=== PATIENT | female | born 1990 | race Hispanic/Latino ===

== ENCOUNTER 2023-04-10 18:37 | Emergency (ER) | payer SELFPAY ==
[2023-04-10 18:45] VITALS: BP 128/83
[2023-04-10 19:29] LABS: % Basophils 0.3 % (0-2); % Eosinophils 1.7 % (0-6); % Immature Granulocytes 0.3 % (0-0.5); % Monocytes 5.1 % (1.7-9.3); % Neutrophils 68.6 % (42.2-75.2); Absolute Eosinophils 0.2 10^3/uL (0-0.7); Absolute Lymphocytes 2.8 10^3/uL (1.2-3.4); Absolute Monocytes 0.6 10^3/uL (0.1-0.6); Absolute Neutrophils 7.9 10^3/uL (1.4-6.5); Hemoglobin 14.4 g/dL (12.0-16.0); Mean Corp Hgb Conc. 34.3 g/dL (33.0-37.0); Mean Corpuscular Hgb 29.8 pg (27.0-31.0); Mean Platelet Volume 9.7 fL (7.4-10.4); Nucleated Red Blood Cells % 0 %; Platelet Count 293 10^3/uL (130-400); Red Blood Cell Count 4.83 10^6/uL (4.20-5.40); Red Cell Dist. Width 12.1 % (11.5-14.5); White Blood Cell Count 11.4 10^3/uL (4.8-10.8)
[2023-04-10 19:39] LABS: HCG, Serum Qualitative Screen Negative
[2023-04-10 19:44] LABS: ALT (SGPT) 29 U/L (0-35); AST (SGOT) 32 U/L (14-36); Albumin 4.5 g/dl (3.5-5.0); Alkaline Phosphatase 86 U/L (38-126); Blood Urea Nitrogen 13 mg/dl (7-17); Calcium 9.7 mg/dl (8.4-10.2); Carbon Dioxide 28 mmol/L (22-30); Chloride 97 mmol/L (98-107); Glucose 89 mg/dl (70-99); Sodium 136 mmol/L (135-145); Total Bilirubin 0.8 mg/dl (0.2-1.3); Total Protein 7.5 g/dl (6.3-8.2); eGFR > 60.00
--- NOTE | 2023-04-10 22:13 | ED.GENMED ---
History of Present Illness
<WILY Bill - Last Filed: 04/11/23 00:12>
General
Chief Complaint: Headache
Source: patient and freelance interpreter/translator (Cousin)
Exam Limitations: none
Time Seen by Provider: 04/10/23 21:02
Travel History
Have you had any contact with someone who has COVID-19?: No
Do you have any symptoms of coronavirus? Fever > 100 degrees, chills, cough, shortness of breath, sore throat, loss of taste or smell, muscle aches, or headache?: No
History of Present Illness
History of Present Illness:
This is a 32 year old female that comes in with c/o left sided headache. States that she went to work today with a pounding headache. States that she passed out. States that with her right eye she can only see half of providers face. States that she
has had chest pain that comes and goes, nausea, and vomited once. States that she is also dizzy with the headache. Denies any fever, chills, abd pain, diarrhea, urinary burning.
Past History
<WILY Bill - Last Filed: 04/11/23 00:12>
Past History
ED Past Medical History: None; Negative Asthma, HTN, Hypercholesterolemia or NIDDM
ED Past Surgical History: Cholecystectomy
Social History
Tobacco: Non-smoker
Alcohol: Occasional
Personal: Single
Living: with family
Employment: Employed
Review of Systems
<WILY Bill - Last Filed: 04/11/23 00:12>
Review of Systems
All Other Systems: ROS reviewed and negative except as documented in HPI and ROS
Constitutional: Reports no symptoms; Denies fever or chills
EENT: Reports no symptoms
Respiratory: Denies cough or trouble breathing
Cardiac: Reports chest pain (Come and goes)
ABD/GI: Reports nausea and vomiting; Denies abdominal pain or diarrhea
: Reports no symptoms; Denies dysuria, frequency or urgency
Musculoskeletal: Reports no symptoms
Skin: Reports no symptoms
Neurological: Reports dizzy and headache (Left sided headache)
Psychiatric: Reports no symptoms
Phy Exam
<WILY Bill - Last Filed: 04/11/23 00:12>
General Physical Exam
General Presentation: mild distress
General age: appears stated age
General Skin: warm and dry
General Habitus: normal
General Mental: alert
General Hydration: appears well hydrated
ENT Exam
ENT Exam: TM's normal, pharynx normal and neck supple
Eye Exam
Eye Exam: PERRL and EOMI
Cardiovascular Exam
Cardiovascular Exam: regular rate/rhythm, no edema, no murmur and normal peripheral pulses
Pulmonary Exam
Pulmonary Exam: lungs clear, no respiratory distress, no rales, chest non tender, no crackles, no rhonchi, no wheezing and no cough
Gastrointestinal Exam
Gastrointestinal Exam: normal bowel sounds, non tender, soft, no organomegaly, no pulsatile mass and non distended
NIH Stroke Score
Level of Consciousness: 0 - Alert
LOC questions: 0-Answers both correctly
LOC Commands: 0-Performs both correctly
Best Gaze: 0-Normal
Visual Mcmahon: 0=Normal, no visual loss
Facial palsy: 0=Normal, symmetrical
Motor - Right Arm: 0=No drift 10 seconds
Motor - Left Arm: 0=No drift 10 seconds
Motor - Right Le-No drift 5 seconds
Motor - Left Le-No drift 5 seconds
Limb Ataxia: 0-Absent
Sensation: 0-Normal
Best Language: 0-No aphasia
Dysarthria: 0-Normal
Extinction and Inattention: 0-No abnormality
Total Score:: 0
Musculoskeletal Exam
Musculoskeletal Exam: full ROM, no edema and other (Hand grasp and push pulls equal)
Skin Exam
Skin Exam: normal color, warm/dry, no rash and no petechia
Psychiatric Exam
Psychiatric Exam: normal mood/affect
<Damian Hollins DO - Last Filed: 04/10/23 22:53>
NIH Stroke Score
Total Score:: 0
Course
<WILY Bill - Last Filed: 04/11/23 00:12>
Orders/Labs/Results
Orders:
Orders
04/10/23 18:50
ECG [Electrocardiogram (*1)] Urgent
Reason for Study: Chest Pain
CT Head W/o Iv Contrast Urgent
Comment:
Reason For Exam: headache
Test Result ONCE
04/10/23 18:51
EKG- Treatment ONCE
04/10/23 19:07
Complete Blood Count/With Diff Urgent
Comprehensive Metabolic Panel Urgent
HCG, Serum Qualitative Screen Urgent
04/10/23 22:06
0.9% Sodium Chloride 1000 ml [Nss] 1,000 ml IV BOLUS
Acetaminophen [Tylenol] 1,000 mg PO NOW STA
Dexamethasone Sod Phosphate [Decadron] 20 mg IV NOW STA
Diphenhydramine [Benadryl] 25 mg IV NOW STA
Ketorolac [Toradol] 30 mg IV NOW STA
Prochlorperazine [Compazine] 5 mg IV NOW STA
04/10/23 22:47
Troponin I Urgent
04/10/23 22:54
Morphine Sulfate 2 mg IV NOW STA
Abnormal Lab Results
04/10/23
19:07
WBC 11.4 H 10^3/uL
(4.8-10.8)
Absolute Neuts (auto) 7.9 H 10^3/uL
(1.4-6.5)
Chloride 97 L mmol/L
(98-107)
04/10/23 19:07
04/10/23 19:07
WBC slightly elevated. HCG negative.
Vital Signs
Initial and Last Documented VS:
Initial Vital Signs
Pulse Resp BP Pulse Ox
90 20 128/83 97
04/10/23 18:45 04/10/23 18:45 04/10/23 18:45 04/10/23 18:45
Last Documented Vital Signs
Temp Pulse Resp BP Pulse Ox
97.4 F 60 20 101/87 100
04/10/23 22:50 04/10/23 22:44 04/10/23 18:45 04/10/23 22:44 04/10/23 22:44
<Damian Hollins, DO - Last Filed: 04/10/23 22:53>
Orders/Labs/Results
Orders:
Orders
04/10/23 18:50
ECG [Electrocardiogram (*1)] Urgent
Reason for Study: Chest Pain
CT Head W/o Iv Contrast Urgent
Comment:
Reason For Exam: headache
Test Result ONCE
04/10/23 18:51
EKG- Treatment ONCE
04/10/23 19:07
Complete Blood Count/With Diff Urgent
Comprehensive Metabolic Panel Urgent
HCG, Serum Qualitative Screen Urgent
04/10/23 22:06
0.9% Sodium Chloride 1000 ml [Nss] 1,000 ml IV BOLUS
Acetaminophen [Tylenol] 1,000 mg PO NOW STA
Dexamethasone Sod Phosphate [Decadron] 20 mg IV NOW STA
Diphenhydramine [Benadryl] 25 mg IV NOW STA
Ketorolac [Toradol] 30 mg IV NOW STA
Prochlorperazine [Compazine] 5 mg IV NOW STA
04/10/23 22:47
Troponin I Urgent
04/10/23 22:54
Morphine Sulfate 2 mg IV NOW STA
Abnormal Lab Results
04/10/23
19:07
WBC 11.4 H 10^3/uL
(4.8-10.8)
Absolute Neuts (auto) 7.9 H 10^3/uL
(1.4-6.5)
Chloride 97 L mmol/L
(98-107)
04/10/23 19:07
04/10/23 19:07
Vital Signs
Initial and Last Documented VS:
Initial Vital Signs
Pulse Resp BP Pulse Ox
90 20 128/83 97
04/10/23 18:45 04/10/23 18:45 04/10/23 18:45 04/10/23 18:45
Last Documented Vital Signs
Temp Pulse Resp BP Pulse Ox
97.4 F 60 20 101/87 100
04/10/23 22:50 04/10/23 22:44 04/10/23 18:45 04/10/23 22:44 04/10/23 22:44
<WILY Bill - Last Filed: 04/11/23 00:12>
MDM/Problems Addressed
Differential Diagnosis Includes:
Complicated Migraine,
MDM/Problems Addressed:
This is a 32 year old female that comes in with c/o left sided headache pain and some vision loss in the right eye. States that she went to work this morning and she passed out due to her headache pain. States that she still has pain on the left
side and she can only see half of my face.
Will get labs, Medicate for pain and CT scan.
Back into see patient. Patient states that she is feeling better and that her vision is normal. Explained that this is most likely a complicated Migraine. Will have patient increase her water intake to 8-8oz glasses daily. Tylenol 1000mg every 6
hours for pain and Ibuprofen 600mg every 6 hours with food for pain. Follow up in the clinic as needed. Return with any concerns.
Chronic conditions affecting care:
NA
Acute Exacerbation and/or Progression of Chronic Illness:
NA
<WILY Bill - Last Filed: 04/11/23 00:12>
*Radiology
Radiology exam reviewed: radiology read reviewed (CT head- NO evidence of acute intracranial abnormality. )
*Pulse Oximetry
Patient hypoxic: no
*EKG
Interpreted by ED Provider?: Yes
Heart Rate: 65
Rate: normal
Rhythm: sinus
[place]: normal axis
Interval: normal interval
QRS Pattern: normal QRS
Ischemia: T-wave inversion (III, aVR, aVF, V1, V3, V4, )
*Shovel Oiler Interpretation
Rate: Shovel Oiler- N/A
*Critical Care Note
Total Time (30-74mins, 75-104mins- exclusive of procedures): Not Applicable
ED Attending Note
<WILY Bill - Last Filed: 04/11/23 00:12>
-
Portions of this chart may have been created with voice recognition software.� Occasional wrong word or��sound alike� substitutions may have occurred due to the inherent limitations of voice recognition software.
<Damian Hollins DO - Last Filed: 04/10/23 22:53>
ED Attending Note
Patient seen and examined by attending physician: Yes
I performed the substantive portion of visit, reviewed & personally made and approve the management plan that is documented in note by myself or DAE.: Yes
ED Attending Note:
Seen with CHIPPER examined independently acute onset of headache unilateral visual changes right arm numbness
Does not currently get headaches, just finished her menstrual cycle, she has had heavy menstrual bleeding previously when she was in [place] was told that she had a hormonal abnormality,
CT of the head noted
Suspect complicated migraine, versus other will see if she does after migraine cocktail,
My evaluation she is awake alert no pain with flexion of the neck does have mild photophobia, moving all extremities,
Discharge Plan
Departure
Patient Disposition: Home (Routine Discharge)
Date of Disposition: 04/11/23
Time of Disposition: 00:09
Patient with high blood pressure during this ER visit?: No
Condition: Good
Covid-19: Not Applicable
Discharge Problem:
Complicated migraine
Instructions: Migraines (DC)
Referrals:
Shahzad Hu MD [Family Provider] - Call in 1-3 days for appt
Activity Restrictions/Additional Instructions:
As discussed, your blood work shows that your white blood cell count is very slightly elevated. Your CT scan is normal. This is most likely a complicated Migraine. Please increase your water intake to 8-8oz glasses daily. You may take Tylenol 1000mg
every 6 hours for pain and alternate with Ibuprofen 600mg every 6 hours with food for pain. Follow up in the clinic as needed. IF YOU HAVE ANY OTHER CONCERNS PLEASE RETURN TO THE EMERGENCY ROOM
Interventions
Interventions:
*Risk Screen - Suicide Last Done: 04/10/23 18:45
*General Assessment Last Done: 04/10/23 18:45
*Neglect/Abuse Screening Last Done: 04/10/23 18:45
ED- Neurological Assessment Last Done: 04/10/23 23:04
[2023-04-10] MEDS: NSS 1000 IV (22:32)
[2023-04-10] MEDS: DECADRON 20 MG IV (22:35)
[2023-04-10] MEDS: COMPAZINE 5 MG IV (22:36)
[2023-04-10] MEDS: BENADRYL 25 MG IV (22:36)
[2023-04-10] MEDS: TORADOL 30 MG IV (22:37)
[2023-04-10] MEDS: TYLENOL 1000 MG PO (22:38)
[2023-04-10 22:44] VITALS: BP 101/87
[2023-04-10 23:19] LABS: Troponin I < 0.012 ng/ml
[2023-04-11 00:27] VITALS: BP 107/78
== END 2023-04-11 00:30 | disposition home or self-care (01) ==
LOC: EMR 18:37
PROVIDERS: Clinical Nurse Specialist Family Health; Emergency Medicine; EMERGENCY PHYSICIAN Emergency Medicine; FAMILY PHYSICIAN Pediatrics
DX: G43.109 Migraine with aura, not intractable, without status migrainosus (principal)
CPT/HCPCS: 99285; 96374; 96375 ×3; 96361; 70450; 80053; 84484; 84703; 85025; 93005

== ENCOUNTER 2023-05-07 18:53 | Emergency (ER) | payer SELFPAY ==
[2023-05-07 19:10] VITALS: BP 110/79
[2023-05-07 19:29] LABS: % Basophils 0.3 % (0-2); % Eosinophils 3.6 % (0-6); % Immature Granulocytes 0.3 % (0-0.5); % Monocytes 6.2 % (1.7-9.3); % Neutrophils 56.6 % (42.2-75.2); Absolute Eosinophils 0.3 10^3/uL (0-0.7); Absolute Monocytes 0.6 10^3/uL (0.1-0.6); Absolute Neutrophils 5.1 10^3/uL (1.4-6.5); Hematocrit 37.8 % (37.0-47.0); Hemoglobin 13.2 g/dL (12.0-16.0); Mean Corp Hgb Conc. 34.9 g/dL (33.0-37.0); Mean Corpuscular Volume 85.9 fL (81.0-99.0); Mean Platelet Volume 9.6 fL (7.4-10.4); Nucleated Red Blood Cells % 0 %; Platelet Count 319 10^3/uL (130-400); Red Cell Dist. Width 12.6 % (11.5-14.5); White Blood Cell Count 9.1 10^3/uL (4.8-10.8)
--- NOTE | 2023-05-07 20:39 | ED.GENMED ---
History of Present Illness
General
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
Source: patient and family
Exam Limitations: other (Language barrier)
Time Seen by Provider: 05/07/23 20:26
Travel History
Have you had any contact with someone who has COVID-19?: No
Do you have any symptoms of coronavirus? Fever > 100 degrees, chills, cough, shortness of breath, sore throat, loss of taste or smell, muscle aches, or headache?: No
History of Present Illness
History of Present Illness:
This is a 32 year old female that come in with c/o bleeding. Friend states that the patient has had vaginal bleeding since Apr 03. States that before this she had bleeding on and off but this has know been every day. States that she went to the
Clinic yesterday and she was told to come to the ER. States that she did get an appointment on May 21 with the RESIDENTIAL YOUTH COUNSELOR in the clinic. States that she has lower abd pain and is nauseated. States that yesterday she was dizzy. Denies any fever,
chills, chest pain, SOB, vomiting, diarrhea, headache, urinary burning.
Past History
Past History
ED Past Medical History: None; Negative Asthma, HTN, Hypercholesterolemia or NIDDM
ED Past Surgical History: Cholecystectomy and Gynecological (Ovarian cyst)
Social History
Tobacco: Non-smoker
Alcohol: Occasional
Personal: Single
Living: with family
Employment: Employed
Review of Systems
Review of Systems
All Other Systems: ROS reviewed and negative except as documented in HPI and ROS
Constitutional: Reports no symptoms; Denies fever or chills
EENT: Reports no symptoms
Respiratory: Reports no symptoms; Denies cough or trouble breathing
Cardiac: Reports no symptoms; Denies chest pain
ABD/GI: Reports abdominal pain and nausea; Denies vomiting or diarrhea
: Reports no symptoms; Denies dysuria, frequency or urgency
Musculoskeletal: Reports no symptoms
Skin: Reports no symptoms
Neurological: Reports dizzy (Yesterday); Denies headache
Psychiatric: Reports no symptoms
Phy Exam
General Physical Exam
General Presentation: no apparent distress
General age: appears stated age
General Skin: warm and dry
General Habitus: normal
General Mental: alert
General Hydration: appears well hydrated
ENT Exam
ENT Exam: TM's normal, pharynx normal and neck supple
Eye Exam
Eye Exam: EOMI
Cardiovascular Exam
Cardiovascular Exam: regular rate/rhythm, no edema, no murmur and normal peripheral pulses
Pulmonary Exam
Pulmonary Exam: lungs clear, no respiratory distress, no rales, chest non tender, no crackles, no rhonchi, no wheezing and no cough
Gastrointestinal Exam
Gastrointestinal Exam: normal bowel sounds, soft, no organomegaly, no pulsatile mass, non distended and tender (Lower abd tenderness with palpation)
Musculoskeletal Exam
Musculoskeletal Exam: full ROM and no edema
Skin Exam
Skin Exam: normal color, warm/dry, no rash and no petechia
Psychiatric Exam
Psychiatric Exam: normal mood/affect
Course
Orders/Labs/Results
Orders:
Orders
05/07/23 19:14
Test Result ONCE
05/07/23 19:23
Complete Blood Count/With Diff Urgent
05/07/23 20:39
0.9% Sodium Chloride 1000 ml [Nss] 1,000 ml IV BOLUS
US Pelvis Only (non-obstetric) Urgent
Comment:
Reason For Exam: Bleeding for a month
05/07/23 20:48
Beta HCG Quantitative Urgent
Comprehensive Metabolic Panel Urgent
05/07/23 22:48
Medroxyprogesterone [Provera] 5 mg PO NOW STA
Abnormal Lab Results
05/07/23
20:48
Chloride 108 H mmol/L
(98-107)
Glucose 142 H mg/dl
(70-99)
05/07/23 19:23
05/07/23 20:48
Glucose nonfasting, HCG <2.39
Vital Signs
Initial and Last Documented VS:
Initial Vital Signs
Temp Pulse Resp BP Pulse Ox
98.4 F 86 18 110/79 99
05/07/23 19:10 05/07/23 19:10 05/07/23 19:10 05/07/23 19:10 05/07/23 19:10
Last Documented Vital Signs
Temp Pulse Resp BP Pulse Ox
98.4 F 68 18 109/73 98
05/07/23 19:10 05/07/23 20:51 05/07/23 20:51 05/07/23 20:51 05/07/23 20:51
MDM/Problems Addressed
Differential Diagnosis Includes:
Uterine fibroids, Abnormal hormonal levels, early Medapause
MDM/Problems Addressed:
This is a 32 year old female that comes in with c/o vaginal bleeding every day since Apr 03. States that she went to the Clinic yesterday and she was told to come to the ER.
Will check labs and get Ultrasound.
Back into see patient and family. Explained that the US shows a right ovarian cyst but the Uterus is normal. Will place patient on a Provera taper and have her follow up in the clinic on May 21 for further evaluation with the RESIDENTIAL YOUTH COUNSELOR. Patient to
return with any concerns.
Chronic conditions affecting care:
NA
Acute Exacerbation and/or Progression of Chronic Illness:
NA
*Radiology
Radiology exam reviewed: radiology read reviewed (US-No sonographic evidence for uterine mass or abnormal endometrial thickening. 4.3cm simple cyst in the right ovary. )
*Pulse Oximetry
Patient hypoxic: no
*EKG
Interpreted by ED Provider?: NA
Rate: EKG- N/A
*Wire Spring Relay Adjuster Interpretation
Rate: Wire Spring Relay Adjuster- N/A
*Critical Care Note
Total Time (30-74mins, 75-104mins- exclusive of procedures): Not Applicable
ED Attending Note
-
Portions of this chart may have been created with voice recognition software.� Occasional wrong word or��sound alike� substitutions may have occurred due to the inherent limitations of voice recognition software.
Discharge Plan
Departure
Patient Disposition: Home (Routine Discharge)
Date of Disposition: 05/07/23
Time of Disposition: 22:51
Patient with high blood pressure during this ER visit?: No
Condition: Good
Covid-19: Not Applicable
Discharge Problem:
Abnormal vaginal bleeding
Instructions: Bleeding Between Periods
Prescriptions:
New
medroxyprogesterone [Provera] 5 mg tablet
5 mg PO TID Qty: 18 0RF
Rx Instructions:
5mg TID for 3 days, Then BID for 3 days, Then daily for 3 days.
Referrals:
[facility] [Outside] - 05/22/23
Fallon Lopez NP [Family Provider] -
Activity Restrictions/Additional Instructions:
As discussed, your blood work shows that your blood sugar is elevated. This is a nonfasting blood sugar. Your Ultrasound shows that you have a small right ovarian cyst. You have had a prescription sent to your Pharmacy. This is for Provera and it
will be a taper over several days. Please follow up in the clinic as scheduled. Please increase your water intake to 8-8oz glasses daily. Ibuprofen as needed for pain. IF YOU HAVE INCREASED BLEEDING, INCREASED ABDOMINAL PAIN, OR YOU HAVE ANY OTHER
CONCERNS PLEASE RETURN TO THE EMERGENCY ROOM.
Interventions
Interventions:
*Risk Screen - Suicide Last Done: 05/07/23 20:42
*General Assessment Last Done: 05/07/23 20:42
*Neglect/Abuse Screening Last Done: 05/07/23 20:42
ED- Fall Risk Assessment Last Done: 05/07/23 20:53
*ED COVID-19 Vaccine History Last Done: 05/07/23 20:42
ED-Female Genitourinary Assessment Last Done: 05/07/23 20:52
[2023-05-07 20:41] VITALS: BMI 33.0
[2023-05-07 20:51] VITALS: BP 109/73
[2023-05-07] MEDS: NSS 1000 IV (20:51)
[2023-05-07 21:11] LABS: ALT (SGPT) 30 U/L (0-35); AST (SGOT) 31 U/L (14-36); Albumin 4.3 g/dl (3.5-5.0); Alkaline Phosphatase 120 U/L (38-126); Blood Urea Nitrogen 10 mg/dl (7-17); Calcium 8.5 mg/dl (8.4-10.2); Carbon Dioxide 23 mmol/L (22-30); Chloride 108 mmol/L (98-107); Estimated Creatinine Clearance > 125 ml/min; Glucose 142 mg/dl (70-99); Sodium 135 mmol/L (135-145); Total Bilirubin 0.3 mg/dl (0.2-1.3); Total Protein 7.1 g/dl (6.3-8.2); eGFR > 60.00
[2023-05-07 21:30] LABS: Beta HCG Quantitative < 2.39 mIU/ml
[2023-05-07] MEDS: PROVERA 5 MG PO (23:01)
[2023-05-07 23:08] VITALS: BP 110/79
== END 2023-05-07 23:09 | disposition home or self-care (01) ==
LOC: EMR 18:53
PROVIDERS: Emergency Medicine; EMERGENCY PHYSICIAN Student in an Organized Health Care Education/Training Program; FAMILY PHYSICIAN Nurse Practitioner Adult Health
DX: N93.9 Abnormal uterine and vaginal bleeding, unspecified (principal)
CPT/HCPCS: 99284; 96360; 76856; 80053; 84702; 85025

== ENCOUNTER 2023-08-10 11:42 | Emergency (ER) | payer SELFPAY ==
[2023-08-10 11:44] VITALS: BP 111/79
[2023-08-10 12:09] LABS: % Basophils 0.5 % (0-2); % Eosinophils 3.1 % (0-6); % Immature Granulocytes 0.2 % (0-0.5); % Lymphocytes 29.7 % (20.5-51.1); % Monocytes 5.8 % (1.7-9.3); % Neutrophils 60.7 % (42.2-75.2); Absolute Eosinophils 0.3 10^3/uL (0-0.7); Absolute Lymphocytes 2.5 10^3/uL (1.2-3.4); Absolute Monocytes 0.5 10^3/uL (0.1-0.6); Absolute Neutrophils 5.1 10^3/uL (1.4-6.5); Hematocrit 35.9 % (37.0-47.0); Hemoglobin 11.4 g/dL (12.0-16.0); Mean Corp Hgb Conc. 31.8 g/dL (33.0-37.0); Mean Corpuscular Hgb 25.4 pg (27.0-31.0); Mean Platelet Volume 10.5 fL (7.4-10.4); Nucleated Red Blood Cells % 0 %; Platelet Count 283 10^3/uL (130-400); Red Blood Cell Count 4.49 10^6/uL (4.20-5.40); Red Cell Dist. Width 14.2 % (11.5-14.5); White Blood Cell Count 8.3 10^3/uL (4.8-10.8)
[2023-08-10 12:24] LABS: ALT (SGPT) 51 U/L (0-35); AST (SGOT) 53 U/L (14-36); Albumin 4.6 g/dl (3.5-5.0); Alkaline Phosphatase 99 U/L (38-126); Blood Urea Nitrogen 9 mg/dl (7-17); Calcium 9.7 mg/dl (8.4-10.2); Carbon Dioxide 21 mmol/L (22-30); Chloride 108 mmol/L (98-107); Glucose 100 mg/dl (70-99); Potassium 4.4 mmol/L (3.5-5.1); Sodium 139 mmol/L (135-145); Total Bilirubin 0.5 mg/dl (0.2-1.3); Total Protein 7.5 g/dl (6.3-8.2); eGFR > 60.00
--- NOTE | 2023-08-10 13:53 | ED.GENMED ---
History of Present Illness
General
Chief Complaint: Musculo-Skeletal Complaint
Source: patient and cardiology associate
Exam Limitations: none
Time Seen by Provider: 08/10/23 13:42
History of Present Illness
History of Present Illness:
32-year-old female complaint of bilateral wrist hand pain some elbow pain. This been going on for 4 days. No known trauma. She does do repetitive movement at work. No rash no fever. Some mild left neck pain she does similar episode 4 to 5 years
ago and self resolved.
Past History
Past History
ED Past Medical History: None; Negative Asthma, HTN, Hypercholesterolemia or NIDDM
ED Past Surgical History: Cholecystectomy and Gynecological (Ovarian cyst)
Social History
Tobacco: Non-smoker
Alcohol: Occasional
Personal: Single
Living: with family
Employment: Employed
Review of Systems
Review of Systems
All Other Systems: Not applicable
Constitutional: Denies fever
: Denies dysuria
Skin: Denies rash
Phy Exam
Physical Exam
Physical Exam:
GENERAL: Alert and oriented in no apparent distress
EYE: Orbits normal.
NECK: Supple, no thyroid palpable
ENT: Pharynx without erythema
CARDIAC: Regular rate and rhythm without any obvious murmurs.
LUNGS: Clear breath sounds,normal
ABDOMEN: Soft, without focal tenderness or distention
NEUROLOGICAL: Alert and oriented , grossly non-focal
SKIN: Warm and dry, no rash or lesion, no discoloration, skin intact.
MUSCULOSKELETAL: No edema,no deformity.Good color. No appreciable joint swelling warmth or erythema. She has some tenderness to both wrists bilaterally. No tenderness over the median nerve at the wrist. No elbow swelling. Good distal pulses and
color.
PSYCH: Normal and appropriate interaction.
Course
Orders/Labs/Results
Orders:
Orders
08/10/23 11:55
CMP [Comprehensive Metabolic Panel] Urgent
Complete Blood Count/With Diff Urgent
Creatine Phosphokinase Urgent
Erythrocyte Sed Rate Urgent
Comment: ADD ON
HCG, Serum Qualitative Screen Urgent
08/10/23 13:51
Add On- LAB Urgent
Tests Added?: qual bhcg,esr,crp,cpk,lyme progressive
08/10/23 13:55
C-Reactive Protein Urgent
Comment: ADD ON
Abnormal Lab Results
08/10/23
11:55
Hgb 11.4 L g/dL
(12.0-16.0)
Hct 35.9 L %
(37.0-47.0)
MCV 80.0 L fL
(81.0-99.0)
MCH 25.4 L pg
(27.0-31.0)
MCHC 31.8 L g/dL
(33.0-37.0)
MPV 10.5 H fL
(7.4-10.4)
Chloride 108 H mmol/L
(98-107)
Carbon Dioxide 21 L mmol/L
(22-30)
Glucose 100 H mg/dl
(70-99)
AST 53 H U/L
(14-36)
ALT 51 H U/L
(0-35)
Creatine Kinase 200 H U/L
(30-135)
08/10/23 11:55
08/10/23 11:55
Vital Signs
Initial and Last Documented VS:
Initial Vital Signs
Temp Pulse Resp BP Pulse Ox
98.7 F 64 18 111/79 98
08/10/23 11:44 08/10/23 11:44 08/10/23 11:44 08/10/23 11:44 08/10/23 11:44
Last Documented Vital Signs
Temp Pulse Resp BP Pulse Ox
98.7 F 64 18 111/79 98
08/10/23 11:44 08/10/23 11:44 08/10/23 11:44 08/10/23 11:44 08/10/23 11:44
MDM/Problems Addressed
Differential Diagnosis Includes:
Clinically patient is very nontoxic in no distress. I cannot find a serious medical issue clinically. This has the sound of a repetitive issue with her joints possibly some form of arthritis. Basic labs are stable. Will add ESR CRP CPK Lyme
titer weakness. No indication for radiologic testing at this time.
*Critical Care Note
Total Time (30-74mins, 75-104mins- exclusive of procedures): Not Applicable
Update Note
Update Note:
Patient's labs are stable. This appears to be myalgias/arthralgias. Possibly work-related. Nothing serious on exam. Anti-inflammatories and follow-up.
ED Attending Note
-
Portions of this chart may have been created with voice recognition software.� Occasional wrong word or��sound alike� substitutions may have occurred due to the inherent limitations of voice recognition software.
Discharge Plan
Departure
Patient Disposition: Home (Routine Discharge)
Date of Disposition: 08/10/23
Time of Disposition: 15:46
Patient with high blood pressure during this ER visit?: No
Discharge Problem:
Arthralgias/myalgias
Instructions: Muscle and Bone Pain (DC)
Prescriptions:
No Action
medroxyprogesterone [Provera] 5 mg tablet
5 mg PO TID Qty: 18 0RF
Rx Instructions:
5mg TID for 3 days, Then BID for 3 days, Then daily for 3 days.
Referrals:
Consuelo Christopher [Family Provider] - Next open appointment
Stand Alone Forms: Return to Work
Activity Restrictions/Additional Instructions:
Advil for pain. Take it fairly regularly for the next 3 to 4 days with food
Light diet work
Follow-up with the clinic
Return sooner with increased pain swelling fever rash or any other concerning symptoms
Your Lyme titer should be back in 3 to 4 days
Interventions
Interventions:
*Risk Screen - Suicide Last Done: 08/10/23 13:51
*General Assessment Last Done: 08/10/23 13:51
*Neglect/Abuse Screening Last Done: 08/10/23 13:51
*ED COVID-19 Vaccine History Last Done: 08/10/23 13:51
ED-Musculoskeletal Assessment Last Done: 08/10/23 13:50
Discharge Date and Time
Print Language: CHINESE
[2023-08-10 14:24] LABS: Creatine Phosphokinase 200 U/L (30-135)
[2023-08-10 14:48] LABS: HCG, Serum Qualitative Screen Negative
[2023-08-10 15:09] LABS: C-Reactive Protein < 5.00 mg/L (0.0-10.00)
[2023-08-10 15:12] LABS: Erythrocyte Sed Rate 20 mm/hour (0-20)
[2023-08-10] MEDS: MOTRIN 600 MG PO (15:58)
== END 2023-08-10 16:18 | disposition home or self-care (01) ==
LOC: EMR 11:42
PROVIDERS: Emergency Medicine; EMERGENCY PHYSICIAN Emergency Medicine; FAMILY PHYSICIAN Pediatrics
DX: M79.642 Pain in left hand (principal); M79.641 Pain in right hand; M54.2 Cervicalgia; M79.10 Myalgia, unspecified site; M25.529 Pain in unspecified elbow
CPT/HCPCS: 99283; 80053; 82550; 84703; 85025; 85652; 86140